=== PATIENT | female | born 1960 | race Caucasian/White ===

== ENCOUNTER 2017-06-14 07:17 | Day surgery (SDC) | payer OTHER ==
[~2017-06-14] VITALS: Ht 165.1 cm; Wt 80.5 kg
[~2017-06-14 07:17] MED LIST: SODIUM CHLORIDE 0.9% 1,000 ML IV ONE
[2017-06-14] MEDS ORDERED: LIDOCAINE HCL 2% 30 ML JELLY TP ONE (07:18)
[2017-06-14] MEDS ORDERED: BENZOCAINE 20% 50 MCG/SPRAY 57 GM TP ONE (07:18)
[2017-06-14] MEDS ORDERED: ALBUTEROL SULFATE 2.5 MG/0.5 ML NEB SOLUTION NEB ONE (07:18)
[2017-06-14] MEDS ORDERED: LIDOCAINE HCL 4% 50 ML SOLUTION TP ONE (07:18)
[2017-06-14] MEDS ORDERED: FentaNYL CITRATE-PF 100 MCG/2 ML VIAL ONE (07:52)
[2017-06-14] MEDS ORDERED: MIDAZOLAM HCL 2 MG/2 ML VIAL ONE (07:52)
[2017-06-14] MEDS ORDERED: NICO-650 MISC (07:54)
[2017-06-14] MEDS ORDERED: SERT50TA12 PO (07:54)
[2017-06-14] MEDS ORDERED: METH2.5T6 PO (07:54)
[2017-06-14] MEDS ORDERED: GABA-531 PO (07:54)
[2017-06-14] MEDS ORDERED: NAPR250T4 PO (07:54)
[2017-06-14] MEDS ORDERED: FLUT1BLS IH (07:54)
[2017-06-14] MEDS ORDERED: PRED10 PO (07:54)
[2017-06-14] MEDS ORDERED: LORA10TA7 PO (07:54)
[2017-06-14] MEDS ORDERED: TRAZ-144 PO (07:54)
[2017-06-14] MEDS ORDERED: DEXT1DRO OU (07:54)
[2017-06-14] MEDS ORDERED: BECL8.7A7 PO (07:54)
[2017-06-14] MEDS ORDERED: FOLI1 PO (07:54)
[2017-06-14] MEDS ORDERED: MethylPREDNISolone SOD SUCC 125 MG/2 ML VIAL IVP ONE (09:00)
[2017-06-14] MEDS ORDERED: MethylPREDNISolone SOD SUCC 125 MG/2 ML VIAL ONE (09:26)
[2017-06-14] MEDS ORDERED: OXYGEN THERAPY IH SCH (20:00)
== END 2017-06-14 10:25 | disposition home or self-care (01) ==
LOC: SURGERY 07:17
PROVIDERS: ATTEND Internal Medicine Critical Care Medicine
DX: J38.4 Edema of larynx (principal); B37.0 Candidal stomatitis; J84.111 Idiopathic interstitial pneumonia, not otherwise specified; N63.0 Unspecified lump in unspecified breast; F17.210 Nicotine dependence, cigarettes, uncomplicated; J44.9 Chronic obstructive pulmonary disease, unspecified; F32.9 Major depressive disorder, single episode, unspecified; I25.2 Old myocardial infarction; Z86.74 Personal history of sudden cardiac arrest; Z72.89 Other problems related to lifestyle; Z98.890 Other specified postprocedural states; Z79.899 Other long term (current) drug therapy; Z88.6 Allergy status to analgesic agent
CPT/HCPCS: 31623; 31624; 71045; 87015; 87070; 87205; 87220; 88108; 88312; J2250; J2930; J3010; J7030